=== PATIENT | female | born 1945 | race Caucasian/White ===

== ENCOUNTER 2018-08-21 09:39 | Emergency (ER) | payer MEDICARE ==
[~2018-08-21] VITALS: Ht 162.6 cm; Wt 55.3 kg
[2018-08-21 09:39] VITALS: BP 139/92
== END 2018-08-21 10:32 | disposition home or self-care (01) ==
LOC: ER 09:40
DX: L03.114 Cellulitis of left upper limb (principal); K58.9 Irritable bowel syndrome, unspecified; Z88.1 Allergy status to other antibiotic agents